=== PATIENT | female | born 1980 | race African-American/Black ===

== ENCOUNTER 2018-04-29 03:07 | Emergency (ER) | payer MEDICARE, OTHER ==
[~2018-04-29] VITALS: Ht 165.1 cm; Wt 78.5 kg
[2018-04-29 03:39] VITALS: BP 111/53
[2018-04-29] MEDS ORDERED: oxyCODONE/APAP (5/325 MG) 1 UDTAB TABLET ONE (03:58)
[2018-04-29] MEDS ORDERED: ONDANSETRON 4 MG TAB.RAPDIS ONE (03:58)
[2018-04-29] MEDS ORDERED: CYCLOBENZAPRINE 10 MG TABLET ONE (03:58)
[2018-04-29] MEDS ORDERED: oxyCODONE/APAP (5/325 MG) 1 UDTAB TABLET PO ONE (04:00)
[2018-04-29] MEDS ORDERED: ONDANSETRON 4 MG TAB.RAPDIS SL ONE (04:00)
[2018-04-29] MEDS ORDERED: CYCLOBENZAPRINE 10 MG TABLET PO ONE (04:00)
== END 2018-04-29 05:43 | disposition home or self-care (01) ==
LOC: ER 03:11
DX: G89.4 Chronic pain syndrome (principal); M54.32 Sciatica, left side; E66.8 Other obesity; M79.7 Fibromyalgia; J45.909 Unspecified asthma, uncomplicated; M32.9 Systemic lupus erythematosus, unspecified; F41.9 Anxiety disorder, unspecified; F43.10 Post-traumatic stress disorder, unspecified; Z88.1 Allergy status to other antibiotic agents; Z88.5 Allergy status to narcotic agent; Z88.6 Allergy status to analgesic agent; Z68.28 Body mass index [BMI] 28.0-28.9, adult
CPT/HCPCS: Q0162

== ENCOUNTER 2018-06-10 22:30 | Emergency (ER) | payer MEDICARE, OTHER ==
[~2018-06-10] VITALS: Ht 165.1 cm; Wt 86.2 kg
[2018-06-10 22:30] VITALS: BP 117/68
[2018-06-10] MEDS ORDERED: KETOROLAC TROMETHAMINE INJ 30 MG/ML VIAL ONE (23:09)
[2018-06-10] MEDS ORDERED: ONDANSETRON 4 MG TAB.RAPDIS ONE (23:10)
[2018-06-10] MEDS ORDERED: MORPHINE SULFATE INJ 4 MG/ML DISP.SYRIN ONE (23:10)
[2018-06-10] MEDS ORDERED: ONDANSETRON 4 MG TAB.RAPDIS SL ONE (23:30)
[2018-06-10] MEDS ORDERED: KETOROLAC TROMETHAMINE INJ 60 MG/2 ML VIAL IM ONE (23:30)
[2018-06-10] MEDS ORDERED: MORPHINE SULFATE INJ 2 MG/ML DISP.SYRIN IM ONE (23:30)
== END 2018-06-10 23:21 | disposition home or self-care (01) ==
LOC: ER 22:30
DX: M54.9 Dorsalgia, unspecified (principal); G89.4 Chronic pain syndrome; M79.7 Fibromyalgia; F43.10 Post-traumatic stress disorder, unspecified; F41.9 Anxiety disorder, unspecified; J45.909 Unspecified asthma, uncomplicated; M54.30 Sciatica, unspecified side; Z88.1 Allergy status to other antibiotic agents; Z88.5 Allergy status to narcotic agent; Z88.6 Allergy status to analgesic agent
CPT/HCPCS: 96372 ×2; 99283; A4606; J1885; J2270; Q0162

== ENCOUNTER 2018-06-11 10:33 | Emergency (ER) | payer MEDICARE, OTHER ==
[~2018-06-11] VITALS: Ht 165.1 cm; Wt 68.0 kg
--- NOTE | 2018-06-11 10:33 | NUR ---
PT SEEN HERE LAST NIGHT FOR SAME ISSUE; PT C/O GEN PAIN; PT AAOX4, PT ON MONITOR, VSS, NAD NOTED, PENDING ER PROVIDER EVAL
[2018-06-11] MEDS ORDERED: KETOROLAC TROMETHAMINE INJ 30 MG/ML VIAL ONE (12:59)
[2018-06-11] MEDS ORDERED: MORPHINE SULFATE INJ 4 MG/ML DISP.SYRIN ONE (12:59)
[2018-06-11] MEDS ORDERED: ONDANSETRON 4 MG TAB.RAPDIS PO ONE (13:00)
[2018-06-11] MEDS ORDERED: ONDANSETRON 4 MG TAB.RAPDIS ONE (13:00)
[2018-06-11] MEDS ORDERED: KETOROLAC TROMETHAMINE INJ 60 MG/2 ML VIAL IM ONE (13:00)
[2018-06-11] MEDS ORDERED: MORPHINE SULFATE INJ 2 MG/ML DISP.SYRIN IM ONE (13:00)
--- NOTE | 2018-06-11 13:00 | NUR ---
PT REPORT SHE IS SUICIDAL; [facility] PET TEAM CONTACTED
[2018-06-11 13:27] LABS: BASOPHILS % (AUTO) 0.4 % (0.0-2.0); EOSINOPHILS % (AUTO) 1.5 % (0.0-6.0); HEMATOCRIT 41 % (33-45); HEMOGLOBIN 13.2 g/dL (11.5-14.8); LYMPHOCYTES % (AUTO) 27.6 % (20.0-44.0); MEAN CORPUSCULAR HGB CONC 32 g/dl (31.0-36.0); MEAN CORPUSCULAR VOLUME 88 fL (82-100); MONOCYTES # (AUTO) 0.3 /CMM (0.1-1.30); MONOCYTES % (AUTO) 4.5 % (2.0-12.0); NEUTROPHILS # (AUTO) 4.7 /CMM (1.8-8.9); PLATELET COUNT (AUTO) 295 /CMM (150-450); RED BLOOD CELL COUNT(AUTO) 4.69 MIL/uL (4.0-5.2); WHITE BLOOD COUNT (AUTO) 7.2 K/uL (4.3-11.0)
[2018-06-11 13:28] LABS: APPEARANCE,URINE Slightly Cloudy (CLEAR); BILIRUBIN,URINE Negative (NEGATIVE); BLOOD, URINE Large Ery/uL (NEGATIVE); COLOR,URINE Yellow (YELLOW); KETONES,URINE Trace (NEGATIVE); LEUKOCYTE ESTERASE ,URINE Negative (NEGATIVE); NITRITE, URINE Negative (NEGATIVE); PH,URINE 6.5 (5.0-8.0); PROTEIN,URINE 100 mg/dl (NEGATIVE); UGLUCOSE Negative (NEGATIVE); UROBILINOGEN,URINE 0.2 EU/dL (0.2)
[2018-06-11 13:35] LABS: CALCIUM, SERUM 8.9 mg/dL (8.5-10.1); CARBON DIOXIDE 25 mmol/L (21-32); CHLORIDE 105 mmol/L (98-107); CREATININE 0.7 mg/dL (0.6-1.3); GLUCOSE 78 mg/dL (74-106); SODIUM SERUM 141 mmol/L (136-145); UREA NITROGEN, BLOOD 14 mg/dL (7-18)
[2018-06-11 13:42] LABS: BACTERIA,URINE Moderate /HPF (None Seen); SQUAMOUS EPITHELIAL CELL,UR Many /HPF (None Seen)
[2018-06-11 13:51] LABS: ACETAMINOPHEN 0 ug/ml (10-30); ALANINE AMINOTRANSFERASE 14 U/L (12-78); ALBUMIN 3.8 g/dL (3.4-5.0); ALCOHOL, BLOOD < 3 mg/dL (0-0); ALKALINE PHOSPHATASE 118 U/L (46-116); ASPARTATE AMINOTRANSFERASE 16 U/L (15-37); BILIRUBIN,TOTAL 0.1 mg/dL (0.2-1.0); SALICYLATE 3.9 mg/dL (2.8-20.0); TOTAL PROTEIN, SERUM 8.1 g/dL (6.4-8.2)
--- NOTE | 2018-06-11 14:45 | NUR ---
PT ACCEPTED TO [facility] PER DE[facility]. WILL CALL FOR REPORTL [facility] WILL ARRANGE TRANSPORT
--- NOTE | 2018-06-11 15:40 | NUR ---
REPORT GIVEN TO JUAN JOSHI AT [facility]
[2018-06-11 15:42] VITALS: BP 110/60
== END 2018-06-11 16:04 ==
LOC: ER 10:35
DX: G89.29 Other chronic pain (principal); R45.851 Suicidal ideations; M79.7 Fibromyalgia; F43.10 Post-traumatic stress disorder, unspecified; F41.9 Anxiety disorder, unspecified; J45.909 Unspecified asthma, uncomplicated; M35.00 Sjogren syndrome, unspecified; M54.30 Sciatica, unspecified side; F32.9 Major depressive disorder, single episode, unspecified; F12.10 Cannabis abuse, uncomplicated; F11.10 Opioid abuse, uncomplicated; Z88.0 Allergy status to penicillin; Z88.5 Allergy status to narcotic agent; Z88.6 Allergy status to analgesic agent
CPT/HCPCS: 36415; 80048; 80076; 80305; 80307; 80329; 81001; 84703; 85025; 87086; 96372 ×2; 99285; A4606; G0480; J1885; J2270; Q0162; 81000-TC